=== PATIENT | female | born 1985 | race Caucasian/White ===

== ENCOUNTER 2019-11-06 13:21 | Inpatient (IN) ==
[2019-11-06] MEDS ORDERED: 0.9 % SODIUM CHLORIDE 1,000 ML IV ONE (13:30)
[2019-11-06] MEDS ORDERED: ONDANSETRON 4 MG/2 ML VIAL IV ONE (13:30)
[2019-11-06 14:49] LABS: Basophils # (Auto) 0.05 K/mcL (0.00-0.30); Basophils % (Auto) 0.3 % (0.0-2.0); Eosinophils # (Auto) 0.24 K/mcL (0.00-0.70); Eosinophils % (Auto) 1.6 % (0.0-7.0); Granulocytes % (Auto) 71.4 % (38.0-78.0); Hematocrit 37.7 % (34.1-44.9); Hemoglobin 13.1 g/dL (11.2-15.7); Lymphocytes # (Auto) 3.16 K/mcL (1.50-4.80); Mean Cell Volume 82.1 fL (80.0-100.0); Mean Corpuscular HGB Conc 34.7 g/dL (31.0-36.0); Mean Platelet Volume 9.9 fL (7.4-10.4); Monocytes # (Auto) 0.86 K/mcL (0.10-0.90); Monocytes % (Auto) 5.7 % (1.0-12.0); Platelet Count 406 K/mcL (140-440); RBC 4.59 M/mcL (3.59-5.38); Red Cell Distribution Width 12.6 % (11.5-14.5)
[2019-11-06 15:08] LABS: Alcohol, Blood < 10.0 mg/dL (<10); Alcohol,Blood < 0.010 gm/dl (<0.010)
[2019-11-06 15:13] LABS: ALT/SGPT 20 U/l (0-40); AST/SGOT 17 U/l (0-37); Albumin 3.9 gm/dL (3.2-5.2); Albumin/Globulin Ratio 1.5 (1.0-2.3); Alkaline Phosphatase 78 U/L (39-117); Bilirubin,Total 0.5 mg/dL (0.0-1.0); Blood Urea Nitrogen 5 mg/dl (6-20); Calcium 8.5 mg/dl (8.6-10.4); Carbon Dioxide 18 mmol/L (22-30); Globulin 2.6 gm/dL (2.2-3.7); Glomerular Filtration Rate 125; Glucose 95 mg/dL (70-105)
[2019-11-06 15:17] LABS: Chloride 88 mmol/L (96-108)
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
[2019-11-06 16:58] LABS: Appearance,Urine CLEAR; Bacteria,Urine 0 /hpf (0); Bilirubin,Urine NEG (NEG); Color,Urine STRAW; Culture Indicated,Urine NO; Glucose,Urine (UA) NEGATIVE (NEG); Ketones,Urine NEG (NEG); Leukocyte Esterase,Urine NEG /uL (NEG); Nitrate,Urine NEG (NEG); Protein,Urine NEG (NEG); Specific Gravity,Urine 1.001 (1.000-1.035); Urine Blood >=1.0 mg/dL (<0.03); Urine RBC < 1 /hpf (0-1); Urine Squamous Epithelial Cell 0 /hpf (0-4); Urine WBC 0 /hpf (0-4); Urobilinogen,Urine NEG (NEG)
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
[2019-11-06 18:20] LABS: Osmolality,Urine 35 mOsm/kg (80-1000)
[2019-11-06 18:31] LABS: Sodium, Urine Random < 20 mmol/L
[2019-11-06 18:53] LABS: Blood Urea Nitrogen 4 mg/dl (6-20); Calcium 8.8 mg/dl (8.6-10.4); Carbon Dioxide 20 mmol/L (22-30); Chloride 99 mmol/L (96-108); Glomerular Filtration Rate 125; Glucose 102 mg/dL (70-105); Uric Acid 4.7 mg/dL (2.5-8.0)
[2019-11-06] MEDS ORDERED: ONDANSETRON 4 MG/2 ML VIAL IV PRN (18:53)
[2019-11-06] MEDS ORDERED: POTASSIUM CHLORIDE 40 MEQ in DEXTROSE 5% IN WATER 500 ML IV PRN (18:53)
[2019-11-06] MEDS ORDERED: POTASSIUM CHLORIDE 20 MEQ TABLET PO PRN ×2 (18:53)
[2019-11-06] MEDS ORDERED: PROMETHAZINE 25 MG/ML VIAL IV PRN (18:53)
[2019-11-06] MEDS ORDERED: ACETAMINOPHEN 325 MG TABLET PO PRN (18:53)
[2019-11-06] MEDS ORDERED: MAGNESIUM SULFATE 2 GM/50 ML BAG IV PRN (18:53)
[2019-11-06] MEDS ORDERED: SENNOSIDES 1 TABLET PO PRN (18:53)
[2019-11-06] MEDS: levETIRAcetam 500 MG TABLET PO SCH (21:29)
[2019-11-06] MEDS: 0.9 % SODIUM CHLORIDE 10 ML SYRINGE IV SCH (21:30)
[2019-11-07] MEDS: 0.9 % SODIUM CHLORIDE 10 ML SYRINGE IV SCH (05:37)
[2019-11-07 06:53] LABS: Basophils # (Auto) 0.03 K/mcL (0.00-0.30); Basophils % (Auto) 0.4 % (0.0-2.0); Eosinophils # (Auto) 0.14 K/mcL (0.00-0.70); Eosinophils % (Auto) 1.9 % (0.0-7.0); Granulocytes % (Auto) 64.1 % (38.0-78.0); Hematocrit 39.4 % (34.1-44.9); Hemoglobin 13.1 g/dL (11.2-15.7); Lymphocytes # (Auto) 2.02 K/mcL (1.50-4.80); Lymphocytes % (Auto) 26.7 % (15.5-49.0); Mean Corpuscular HGB Conc 33.2 g/dL (31.0-36.0); Mean Platelet Volume 9.9 fL (7.4-10.4); Monocytes # (Auto) 0.52 K/mcL (0.10-0.90); Monocytes % (Auto) 6.9 % (1.0-12.0); Platelet Count 332 K/mcL (140-440); RBC 4.58 M/mcL (3.59-5.38); Red Cell Distribution Width 13.3 % (11.5-14.5); WBC 7.6 K/mcL (4.50-11.00)
--- NOTE | 2019-11-07 07:15 | Internal Med Progress Note ---
Medical - PN: Subj Patient information: Note initiated : 11/07/19 at 7:12 am Service Date, if different from initiated Date: [] Patient: Brenda Pina a 34 y/o F admitted on 11/06/19 for N/V/D. Chief Complaint: [] Interval history: Ms. Pina is a 34 year old F Presents the ED for nausea vomiting and diarrhea. Patient is a poor historian history was also obtained from her mother via ED provider. However mother seem to be a poor historian as well. Sound like patient was doing well yesterday. And today developed nausea vomiting and diarrhea prior to arrival. No recent alcohol use patient states couple years ago. He has some abdominal cramping from menses but otherwise no abdominal pain chest pain coughing shortness of breath. She has been urinating quite a bit in the ED and it is very dilute. Patient says she drinks a lot of soda during the day. No headache. No new medications. The ED work-up ED showed a sodium of 122 with a low chloride and mildly low bicarb. He is age within normal limits. Urine studies still pending. Vital signs stable. Patient had a similar admission to [facility] of weeks ago however that time she did have what was thought to be seizure-like activity. / Patient feeling well. No overnight events. Does admit to drinking multiple glasses of water throughout the day. She says she went from alcohol to pop and water. Review of Systems: denies headache/fever/chills/nausea/vomiting/chest or abdominal pain/cough/dyspnea/diarrhea. Otherwise see above. - Constitutional Vitals: Vital Signs Temp Pulse Resp BP Pulse Ox 98.3 F 76 20 101/61 98 11/07/19 03:32 11/07/19 03:32 11/07/19 03:32 11/07/19 03:32 11/07/19 03:32 Period Temp Pulse Resp BP Sys/Escobar Pulse Ox Last 24 Hr 97.3 F-98.3 F 63-106 18-20 90-141/51-95 94-98 Intake and Output 11/06/19 11/07/19 11/07/19 21:59 05:59 13:59 Intake Total 1000 880 Output Total 4300 1000 Balance -3300 -120 Weight 108.454 kg Intake & Output: Intake & Output 11/06/19 11/07/19 11/07/19 21:59 05:59 13:59 Intake Total 1000 880 Output Total 4300 1000 Balance -3300 -120 Weight 108.454 kg Intake: IV 1000 Sodium Chloride 0.9% 1,000 ml @ 1000 Wide Open IV BOLUS ONE Rx#: [id number] Oral 880 Output: Void Amount 4300 1000 Other: Urine Appearance Clear Small Blood Clots Urine Color Bright Yellow [place] Blood Tinged Urine Odor Normal Exam: General: Alert, Awake, No acute Distress, obese Eyes/N/T: EOMI, Head/Neck: neck supple, c CV: RRR, 1/6 SM, Pulm: Clear b/l, no wheezing/rhonchi/rales Abd: soft, nontender, +BS x4 Ext: no clubbing/cyanosis/edema Neuro: Alert, no focal deficits, moves all extremities, Skin: warm/dry Medical - PN: Obj Da - Labs CBC & Chem 7: 11/07/19 04:51 11/07/19 04:51 Labs: Abnormal Lab Results 11/06/19 11/06/19 11/06/19 17:37 17:10 13:47 WBC Gran # Sodium 122 L Chloride 88 L Carbon Dioxide 20 L 18 L BUN 4 L 5 L Creatinine 0.5 L 0.5 L Osmolality 279 L Calcium 8.5 L Urine Occult Blood Urine Osmolality 35 L 11/06/19 11/06/19 13:47 13:35 WBC 15.0 H Gran # 10.71 H Sodium Chloride Carbon Dioxide BUN Creatinine Osmolality Calcium Urine Occult Blood >=1.0 A Urine Osmolality Meds: Medications Acetaminophen (Tylenol) 650 mg PO Q6HP PRN PRN Reason: PAIN/FEVER > 101 Potassium Chloride 40 meq/ (Dextrose) 520 mls @ 130 mls/hr IV UD PRN PRN Reason: Potassium < 3 Magnesium Sulfate (Magnesium Sulfate) 2 gm in 50 mls @ 50 mls/hr IV UD PRN PRN Reason: Magnesium </= 1.6 Levetiracetam (Keppra) 500 mg PO BID ELMER Last Admin: 11/06/19 21:29 Dose: 500 mg Documented by: Ondansetron HCl (Zofran) 4 mg IV Q4HP PRN PRN Reason: Nausea And Vomiting Potassium Chloride (Kdur) 40 meq PO UD PRN PRN Reason: Potssium is 3-3.5 Last Admin: 11/06/19 21:29 Dose: 40 meq Documented by: Potassium Chloride (Kdur) 40 meq PO UD PRN PRN Reason: Potassium < 3 Promethazine HCl (Phenergan) 12.5 mg IV Q6HP PRN PRN Reason: Nausea And Vomiting Propranolol HCl (Inderal La) 60 mg PO QDAY ELMER Senna (Senokot) 2 tab PO DAILYP PRN PRN Reason: Constipation Sodium Chloride (Saline Flush) 10 ml IV Q8 ELMER Last Admin: 11/07/19 05:37 Dose: 10 ml Documented by: Medical - PN: A/P - Time Spent With Patient Total time spent is greater than 50% in coordination of care (as documented) at patient's floor/unit and/or counseling patient: - Narrative A/P Narrative: 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 -auto corrected *N/V/D: n/v Likely consequence of hyponatremia -no diarrhea since admit *Non-anion gap metabolic acidosis: Likely 2/2 diarrhea *h/o Wernicke-Korsakoff syndrome: *h/o seizures, likely related to etoh: *Obesity: *Anxiety: *Tobacco abuse: P: -education on water intake -Stool culture and studies if he needs to have diarrhea -Smoking cessation counseling -ppx: SCD and ambulation
[2019-11-07] MEDS: levETIRAcetam 500 MG TABLET PO SCH (08:53)
[2019-11-07] MEDS ORDERED: PROPRANOLOL 60 MG CAP.XL.24H PO SCH (09:00)
[2019-11-07 10:11] LABS: ALT/SGPT 17 U/l (0-40); AST/SGOT 12 U/l (0-37); Albumin 3.8 gm/dL (3.2-5.2); Albumin/Globulin Ratio 1.5 (1.0-2.3); Alkaline Phosphatase 74 U/L (39-117); Bilirubin,Direct < 0.2 mg/dL (0.0-0.3); Bilirubin,Total 0.4 mg/dL (0.0-1.0); Calcium 8.7 mg/dl (8.6-10.4); Carbon Dioxide 22 mmol/L (22-30); Chloride 106 mmol/L (96-108); Globulin 2.6 gm/dL (2.2-3.7); Glomerular Filtration Rate 117; Glucose 95 mg/dL (70-105); Lactate Dehydrogenase 132 U/L (94-250); Triglycerides 90 mg/dl (<150); Uric Acid 5.4 mg/dL (2.5-8.0)
[2019-11-07 10:13] LABS: Blood Urea Nitrogen 6 mg/dl (6-20)
--- NOTE | 2019-11-07 10:21 | Discharge Summary ---
Medical - DS: Prov Patient information: Note initiated : 11/07/19 at 10:19 am Service Date, if different from initiated Date: [] Patient: Brenda Pina 34 y/o F admitted on 11/06/19 for N/V/D. Chief Complaint: [] Date of admission: 11/06/19 17:58 Discharge date: 11/07/19 Primary care physician: Tamir Doran DO Consults: 11/06/19 16:50 Consult to Physician [CONS] Stat Comment: Consulting Provider: Kory Hennessy Reason For Exam: Physician to Consult Medical - DS: Meds - Discharge Medications Active and Home Medications: Home Medications levETIRAcetam [Roweepra] 500 mg PO BID 06/28/18 [History Confirmed 11/06/19 Last Taken Unknown] propranolol 60 mg capsule,24 hr,extended release 60 mg PO QDAY #90 cap 07/02/19 [Rx Confirmed 11/06/19 Last Taken Unknown] magnesium oxide 1 tab PO DAILY 10/17/19 [History Confirmed 11/06/19 Last Taken Unknown] Vitamin B Complex [Balanced B-50] 1 tab PO DAILY 11/06/19 [History Confirmed 11/06/19 Last Taken Unknown] Medical - DS: Hosp Hospital Course: Ms. Pina is a 34 year old F Presents the ED for nausea vomiting and diarrhea. Patient is a poor historian history was also obtained from her mother via ED provider. However mother seem to be a poor historian as well. Sound like patient was doing well yesterday. And today developed nausea vomiting and diarrhea prior to arrival. No recent alcohol use patient states couple years ago. He has some abdominal cramping from menses but otherwise no abdominal pain chest pain coughing shortness of breath. She has been urinating quite a bit in the ED and it is very dilute. Patient says she drinks a lot of soda during the day. No headache. No new medications. The ED work-up ED showed a sodium of 122 with a low chloride and mildly low bicarb. He is age within normal limits. Urine studies still pending. Vital signs stable. Patient had a similar admission to [facility] of weeks ago however that time she did have what was thought to be seizure-like activity. 6/3 Patient feeling well. No overnight events. Does admit to drinking multiple glasses of water throughout the day. She says she went from alcohol to pop and water. 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 -auto corrected *N/V/D: n/v Likely consequence of hyponatremia -no diarrhea since admit *Non-anion gap metabolic acidosis: Likely 2/2 diarrhea, resolved *h/o Wernicke-Korsakoff syndrome: *h/o seizures, likely related to etoh: *Obesity: *Anxiety: *Tobacco abuse: Discharge diagnosis: Hyponatremia from primary polydipsia nausea vomiting Secondary discharge diagnosis: Non-gap metabolic acidosis Warnicke Korsakoff syndrome history of seizures obesity anxiety tobacco abuse - Time Spent with Patient Total time spent providing and/or coordinating discharge services: Greater than 30 minutes Medical - DS: Exam - Constitutional Vitals: Vital Signs Temp Pulse Pulse Resp BP BP BP 11/07/19 08:00 98.4 F 75 18 107/69 11/07/19 07:27 75 20 11/07/19 03:32 98.3 F 76 20 101/61 11/06/19 23:41 98.3 F 88 20 90/51 11/06/19 19:52 98.1 F 85 20 105/69 11/06/19 17:58 98.2 F 78 20 109/69 11/06/19 17:18 106 H 127/95 11/06/19 16:30 81 141/82 11/06/19 16:01 80 125/73 11/06/19 15:31 65 127/78 11/06/19 15:01 67 139/94 11/06/19 14:31 64 133/82 11/06/19 14:01 64 132/83 11/06/19 13:58 66 18 11/06/19 13:33 63 20 116/71 11/06/19 13:21 97.3 F 64 20 128/76 Pulse Ox 11/07/19 08:00 95 11/07/19 07:27 98 11/07/19 03:32 98 11/06/19 23:41 97 11/06/19 19:52 95 11/06/19 17:58 96 11/06/19 17:18 96 11/06/19 16:30 94 11/06/19 16:01 95 11/06/19 15:31 98 11/06/19 15:01 96 11/06/19 14:31 98 11/06/19 14:01 97 11/06/19 13:58 95 11/06/19 13:33 96 11/06/19 13:21 97 Intake and Output 11/06/19 11/07/19 11/07/19 21:59 05:59 13:59 Intake Total 1000 880 640 Output Total 4300 1000 1300 Balance -3300 -120 -660 Intake: IV 1000 Sodium Chloride 0.9% 1,000 ml @ 1000 Wide Open IV BOLUS ONE Rx#: [id number] Oral 880 640 Output: Void Amount 4300 1000 1300 Other: Meal Breakfast Percent of Meal Consumed 25% Feeding Ability Assist with Tray Set Up Urine Appearance Clear Sediment Small Blood Clots Urine Color Bright Yellow [place] Straw Blood Tinged Urine Odor Normal Normal Weight 108.454 kg Medical - DS: Data Labs on day of discharge: Labs from last 24 hours 11/07/19 11/07/19 11/07/19 07:29 04:51 04:51 WBC 7.6 RBC 4.58 Hgb 13.1 Hct 39.4 MCV 86.0 MCH 28.6 MCHC 33.2 RDW 13.3 Plt Count 332 MPV 9.9 Gran % 64.1 Lymph % (Auto) 26.7 Stokes % (Auto) 6.9 Eos % (Auto) 1.9 Baso % (Auto) 0.4 Gran # 4.85 Lymph # (Auto) 2.02 Stokes # (Auto) 0.52 Eos # (Auto) 0.14 Baso # (Auto) 0.03 Sodium 140 TNP Potassium 4.1 TNP Chloride 106 TNP Carbon Dioxide 22 TNP Anion Gap 12.0 TNP BUN 6 TNP Creatinine 0.6 TNP GFR Calculation 117 TNP Glucose 95 TNP Osmolality Uric Acid 5.4 TNP Calcium 8.7 TNP Phosphorus 3.0 TNP Magnesium 2.1 TNP Total Bilirubin 0.4 TNP Direct Bilirubin < 0.2 TNP GGT 27 TNP AST 12 TNP ALT 17 TNP Alkaline Phosphatase 74 TNP Lactate Dehydrogenase 132 TNP Total Protein 6.4 TNP Albumin 3.8 TNP Globulin 2.6 TNP Albumin/Globulin Ratio 1.5 TNP Triglycerides 90 TNP TSH Urine Color Urine Appearance Urine pH Ur Specific [place] Urine Protein Urine Glucose (UA) Urine Ketones Urine Occult Blood Urine Nitrate Urine Bilirubin Urine Urobilinogen Ur Leukocyte Esterase Urine RBC Urine WBC Ur Squamous Epith Cells Urine Bacteria Ur Culture Indicated? Urine Osmolality Ur Random Sodium Urine Opiates Screen Ur Opiates Confirm Ur Oxycodone Screen Urine Methadone Screen Ur Methadone Confirm Ur Barbiturates Screen Ur Barbiturate Confirm Ur Phencyclidine Scrn Urine PCP Confirm Ur Amphetamines Screen U Amphetamines Confirm U Benzodiazepines Scrn U Benzodiazepine Confm Urine Cocaine Screen Urine Cocaine Confirm U Cannabinoids Confirm U Marijuana (THC) Screen Ethyl Alcohol 11/06/19 11/06/19 11/06/19 17:37 17:10 13:47 WBC RBC Hgb Hct MCV MCH MCHC RDW Plt Count MPV Gran % Lymph % (Auto) Stokes % (Auto) Eos % (Auto) Baso % (Auto) Gran # Lymph # (Auto) Stokes # (Auto) Eos # (Auto) Baso # (Auto) Sodium 134 Potassium 3.5 Chloride 99 Carbon Dioxide 20 L Anion Gap 15.0 BUN 4 L Creatinine 0.5 L GFR Calculation 125 Glucose 102 Osmolality 279 L Uric Acid 4.7 Calcium 8.8 Phosphorus Magnesium Total Bilirubin Direct Bilirubin GGT AST ALT Alkaline Phosphatase Lactate Dehydrogenase Total Protein Albumin Globulin Albumin/Globulin Ratio Triglycerides TSH 1.80 Urine Color Urine Appearance Urine pH Ur Specific [place] Urine Protein Urine Glucose (UA) Urine Ketones Urine Occult Blood Urine Nitrate Urine Bilirubin Urine Urobilinogen Ur Leukocyte Esterase Urine RBC Urine WBC Ur Squamous Epith Cells Urine Bacteria Ur Culture Indicated? Urine Osmolality 35 L Ur Random Sodium < 20 Urine Opiates Screen Ur Opiates Confirm Ur Oxycodone Screen Urine Methadone Screen Ur Methadone Confirm Ur Barbiturates Screen Ur Barbiturate Confirm Ur Phencyclidine Scrn Urine PCP Confirm Ur Amphetamines Screen U Amphetamines Confirm U Benzodiazepines Scrn U Benzodiazepine Confm Urine Cocaine Screen Urine Cocaine Confirm U Cannabinoids Confirm U Marijuana (THC) Screen Ethyl Alcohol 11/06/19 11/06/19 11/06/19 13:47 13:47 13:47 WBC 15.0 H RBC 4.59 Hgb 13.1 Hct 37.7 MCV 82.1 MCH 28.5 MCHC 34.7 RDW 12.6 Plt Count 406 MPV 9.9 Gran % 71.4 Lymph % (Auto) 21.0 Stokes % (Auto) 5.7 Eos % (Auto) 1.6 Baso % (Auto) 0.3 Gran # 10.71 H Lymph # (Auto) 3.16 Stokes # (Auto) 0.86 Eos # (Auto) 0.24 Baso # (Auto) 0.05 Sodium 122 L Potassium 3.3 Chloride 88 L Carbon Dioxide 18 L Anion Gap 16.0 BUN 5 L Creatinine 0.5 L GFR Calculation 125 Glucose 95 Osmolality Uric Acid Calcium 8.5 L Phosphorus Magnesium Total Bilirubin 0.5 Direct Bilirubin GGT AST 17 ALT 20 Alkaline Phosphatase 78 Lactate Dehydrogenase Total Protein 6.5 Albumin 3.9 Globulin 2.6 Albumin/Globulin Ratio 1.5 Triglycerides TSH Urine Color Urine Appearance Urine pH Ur Specific [place] Urine Protein Urine Glucose (UA) Urine Ketones Urine Occult Blood Urine Nitrate Urine Bilirubin Urine Urobilinogen Ur Leukocyte Esterase Urine RBC Urine WBC Ur Squamous Epith Cells Urine Bacteria Ur Culture Indicated? Urine Osmolality Ur Random Sodium Urine Opiates Screen Ur Opiates Confirm Ur Oxycodone Screen Urine Methadone Screen Ur Methadone Confirm Ur Barbiturates Screen Ur Barbiturate Confirm Ur Phencyclidine Scrn Urine PCP Confirm Ur Amphetamines Screen U Amphetamines Confirm U Benzodiazepines Scrn U Benzodiazepine Confm Urine Cocaine Screen Urine Cocaine Confirm U Cannabinoids Confirm U Marijuana (THC) Screen Ethyl Alcohol < 0.010 11/06/19 11/06/19 13:35 13:35 WBC RBC Hgb Hct MCV MCH MCHC RDW Plt Count MPV Gran % Lymph % (Auto) Stokes % (Auto) Eos % (Auto) Baso % (Auto) Gran # Lymph # (Auto) Stokes # (Auto) Eos # (Auto) Baso # (Auto) Sodium Potassium Chloride Carbon Dioxide Anion Gap BUN Creatinine GFR Calculation Glucose Osmolality Uric Acid Calcium Phosphorus Magnesium Total Bilirubin Direct Bilirubin GGT AST ALT Alkaline Phosphatase Lactate Dehydrogenase Total Protein Albumin Globulin Albumin/Globulin Ratio Triglycerides TSH Urine Color Straw Urine Appearance Clear Urine pH 6.0 Ur Specific [place] 1.001 Urine Protein Neg Urine Glucose (UA) Negative Urine Ketones Neg Urine Occult Blood >=1.0 A Urine Nitrate Neg Urine Bilirubin Neg Urine Urobilinogen Neg Ur Leukocyte Esterase Neg Urine RBC < 1 Urine WBC 0 Ur Squamous Epith Cells 0 Urine Bacteria 0 Ur Culture Indicated? No Urine Osmolality Ur Random Sodium Urine Opiates Screen TNP Ur Opiates Confirm Not Reportable Ur Oxycodone Screen TNP Urine Methadone Screen TNP Ur Methadone Confirm Not Reportable Ur Barbiturates Screen TNP Ur Barbiturate Confirm Not Reportable Ur Phencyclidine Scrn TNP Urine PCP Confirm Not Reportable Ur Amphetamines Screen TNP U Amphetamines Confirm Not Reportable U Benzodiazepines Scrn TNP U Benzodiazepine Confm Not Reportable Urine Cocaine Screen TNP Urine Cocaine Confirm Not Reportable U Cannabinoids Confirm Not Reportable U Marijuana (THC) Screen TNP Ethyl Alcohol Medical - DS: A/P - Patient/Caregiver Discharge Instructions Activity: increase activity as tolerated Diet: Regular Diet (limit free water intake to 2L day) - Follow up Plan Follow up with: Tamir Doran DO [Primary Care Provider] - Disposition: Home, Self-Care Prognosis: Fair Rehab Potential: Fair Overall status at discharge: patient is back to baseline
== END 2019-11-07 13:50 | disposition home or self-care (01) | DRG 641 ==
LOC: ED 13:21 → MEDSUR 17:58
PROVIDERS: ADMIT Internal Medicine; ATTEND Internal Medicine